=== PATIENT | female | born 1965 | race Caucasian/White ===

== ENCOUNTER 2025-08-13 07:30 | Observation (INO) ==
[2025-08-13] MEDS: ZOFRAN INJ 4 MG VIAL ONE (06:54)
[2025-08-13] MEDS: ZEMURON 100 MG VIAL ONE (06:54)
[2025-08-13] MEDS: TORADOL 30 MG VIAL ONE (06:54)
[2025-08-13] MEDS: REGLAN INJ 10 MG VIAL ONE (06:54)
[2025-08-13] MEDS: BRIDION ONE (06:55)
[2025-08-13] MEDS: OFIRMEV IV 1000 MG VIAL 1,000 MG/100 ML VIAL IV ONE (06:55)
[2025-08-13] MEDS: DIPRIVAN VIAL 20 ML ONE ×2 (06:55→07:49)
[2025-08-13] MEDS: VERSED ONE (06:55)
[2025-08-13] MEDS: FENTANYL VIAL INJ 100 mcg ONE (06:55)
[2025-08-13] MEDS: LR 1,000 ML IV 1,000 ML IV ONE (06:59)
[2025-08-13] MEDS: VASOSTRICT INJ 20 UNITS VIAL ONE (07:02)
[2025-08-13 07:03] VITALS: BMI 30.2
[2025-08-13] MEDS: BARHEMSYS INJ ONE (07:12)
[2025-08-13] MEDS: PEPCID 20 MG VIAL ONE (07:12)
[2025-08-13] MEDS: TRANSDERM-SCOP TD ONE (07:13)
[2025-08-13] MEDS: PRECEDEX INJ VIAL ONE (07:20)
[2025-08-13] MEDS: NS 100 ML IV 100 ML ONE (07:22)
[2025-08-13] MEDS: ANCEF VIAL 1 GRAM ONE (07:22)
[2025-08-13] MEDS: BETADINE SOLN ONE (07:22)
[~2025-08-13 07:30] MED LIST: ANCEF VIAL 1 GRAM IVP ONE; KETAMINE HCL ONE; LR 1,000 ML IV 1,000 ML IV SCH; ULTANE GAS IN ONE; XYLOCAINE 2 % (PLAIN) ONE
[2025-08-13] MEDS: EPHEDRINE SULFATE INJ ONE (07:36)
[2025-08-13] MEDS: DECADRON INJ ONE (07:46)
[2025-08-13] MEDS ORDERED: ZOFRAN INJ 4 MG VIAL IVP PRN ×2 (08:04→09:37)
[2025-08-13] MEDS ORDERED: BENADRYL INJ 50 MG VIAL IVP PRN ×2 (08:04→09:37)
[2025-08-13] MEDS ORDERED: DILAUDID INJ IVP PRN (08:04)
[2025-08-13] MEDS ORDERED: REGLAN INJ 10 MG VIAL IVP PRN (08:04)
[2025-08-13] MEDS: DILAUDID INJ ONE (08:05)
[2025-08-13] MEDS: LR 1,000 ML IV 1,000 ML IV SCH (16:30)
[2025-08-13] MEDS: TORADOL 30 MG VIAL IVP PRN (18:23)
[2025-08-13] MEDS: LOPRESSOR TAB 25 MG PO SCH (20:48)
[2025-08-14 04:50] LABS: MEAN PLATELET VOLUME 6.4 fL (7.4-11.0); RED CELL DISTRIBUTION WIDTH 14.3 % (11.6-16.5)
[2025-08-14 04:58] LABS: COR NA(FOR HYPERGLY) 137 mmol/L (136-145); CREATININE 1.00 mg/dL (0.55-1.02); eGFR NON BLACK RACES > 60 (>60)
[2025-08-14] MEDS: PERCOCET TAB 5/325 MG PO PRN (05:27)
[2025-08-14 06:29] VITALS: RESP 18
[2025-08-14] MEDS: LR 1,000 ML IV 1,000 ML IV ONE (07:52)
[2025-08-14] MEDS: DIPRIVAN VIAL 20 ML ONE (07:52)
[2025-08-14 08:21] VITALS: BP 106/55; PULSE 76; TEMP 98.5; O2SAT 98
[2025-08-14] MEDS: HYDROCHLOROTHIAZIDE 12.5 MG CAP PO SCH (09:20)
[2025-08-14] MEDS: LIPITOR TAB 20 MG PO SCH (09:20)
[2025-08-14] MEDS: PROTONIX TAB 40 MG PO SCH (09:20)
== END 2025-08-14 10:20 | disposition home or self-care (01) ==
LOC: MED/SURG → EDSTATUS 07:30
PROVIDERS: ADMIT Specialist; ATTEND Specialist
DX: N89.8 Other specified noninflammatory disorders of vagina; R10.2 Pelvic and perineal pain; R93.89 Abnormal findings on diagnostic imaging of other specified body structures; R73.09 Other abnormal glucose; G25.81 Restless legs syndrome; K21.9 Gastro-esophageal reflux disease without esophagitis; N95.0 Postmenopausal bleeding; E83.51 Hypocalcemia; I10 Essential (primary) hypertension; E03.8 Other specified hypothyroidism